=== PATIENT | female | born 2000 ===

== ENCOUNTER 2024-07-20 07:24 | Inpatient (IN) ==
[2024-07-20] MEDS ORDERED: OXYTOCIN 30 UNITS/NSS 30 UNITS/500 ML BAG IV PRN ×2 (07:54→21:59)
[2024-07-20] MEDS ORDERED: LIDOCAINE 1% LOCAL 20 ML VIAL INFIL PRN (07:54)
--- NOTE | 2024-07-20 07:59 | History & Physical Report ---
Date of Service July 20, 2024 Assessment & Plan (1) : Plan: G1, P0 labs reviewed nothing seems uneventful her group B strep is negative Chlamydia gonorrhea is negative had a negative maternal serum protein panorama suggests a female low risk had a negative carrier screen had an anatomy scan April 06 had the RSV vaccine and negative RPR on June 23 patient is uncomfortable previously been 1 cm now was 2.5 cm will admit History of Present Illness Primary Care Provider: NO PCP Unassigned patient not known to our practice she did have a apparently a visit scheduled for later today but has arrived in labor she has been checked by nursing at 2.5 cm uncomplicated is brought her records which are available she was receiving care in [place] but wishes to deliver in [place] because of family Physical Exam Constitutional: WD/WN, vitals as above well developed and well nourished Respiratory: normal respiratory effort, lungs clear to auscultation normal respiratory effort Cardiovascular: RRR, no murmur, no edema Gastrointestinal (Abdomen): normal bowel sounds, soft, nontender, no hepatosplenomegaly Results & Data Vital Signs (Past 12 Hours) Vital Signs Temp Pulse Resp BP 07/20/24 07:39 97.9 F 81 20 124/59 L Coding Level of Care Code None Diagnoses Z34.90
[2024-07-20 08:41] LABS: Hematocrit (blood only) 34.3 % (37.0-47.0); Hemoglobin 11.5 g/dl (12.0-16.0); Mean Corpuscular Hgb Conc 33.5 g/dL (32.0-36.0); Mean Corpuscular Volume 89.6 fL (80.0-100.0); Mean Platelet Volume 12.9 fL (9.4-12.4); Platelet Count 159 K/uL (130-400); RDW Coefficient of Variation 14.7 % (11.5-14.5); RDW Standard Deviation 48.2 fL (36.4-46.3); Red Blood Count 3.83 M/uL (4.20-5.40); White Blood Count 11.23 K/ul (4.8-10.8)
--- NOTE | 2024-07-20 10:26 | History & Physical Report ---
Date of Service July 20, 2024 History of Present Illness Chief Complaint: labor Primary Care Provider: NO PCP 24yo at 39wks ega presents to LD unassigned Allergies Allergy/AdvReac Type Severity Reaction Status Date / Time No Known Allergies Allergy Unverified 07/20/24 08:04 Home Medications Medication Instructions Recorded Confirmed Type vits no.124-ferrous fum 1 tab PO DAILY 07/20/24 07/20/24 History 27 mg iron-folic acid 800 mcg tablet ( Vitamin) Patient History Medical History UTI (urinary tract infection) Surgical History (Updated 07/20/24 @ 08:02 by Marika Brenner RN) No history of previous surgery Family History (Updated 07/20/24 @ 08:04 by Marika Brenner RN) Father Diabetes Hypertension Mother Hypertension Social History Smoking Status: Never smoker Hx Alcohol Use: No Hx Substance Use: No Preferred Language: Faroese Communication Ability: Effective Bridge Instructor Required: No Beliefs That Will Affect Care: None marital status: Current Living Situation: Spouse Current Living Situation Comment: Pt. 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 Feels Safe at Home: Yes Assistive Devices: Glasses Results & Data Vital Signs (Past 12 Hours) Vital Signs Temp Pulse Resp BP 07/20/24 10:03 76 110/62 07/20/24 10:02 97.5 F L 20 07/20/24 07:39 97.9 F 81 20 124/59 L Coding
--- NOTE | 2024-07-20 10:31 | Labor Progress Brief Note ---
Date of Service July 20, 2024 Subjective pt did ambulate and having stronger ctx. she denies rom or vb. Assessment & Plan (1) Normal labor: Plan pt has been admitted in labor. informed consent to proceed with arom, will see how that helps labor pattern. pt does want to ambulate intermittently. fhts categ 1. Physical Exam Constitutional: WD/WN, vitals as above Respiratory: normal respiratory effort, lungs clear to auscultation Cardiovascular: Rate/Rhythm: regular rate and regular rhythm Gastrointestinal (Abdomen): soft gravid nt efw 7-8# Musculoskeletal: no edema nontender calves Neurologic: grossly normal Psychiatric: A+Ox3, euthymic affect Genitourinary: Manual OB Exam: + cervical dilation (4-5cm), + cervical effacement 50%, + station -2 and + amniotic fluid (arom ) clear OB Exam Monitor Tracing: + external FHT monitor used, + external uterine monitor used (q2-4), + category I and + normal FHT variability Results & Data Vital Signs (Past 12 Hours) Vital Signs Temp Pulse Resp BP 07/20/24 10:03 76 110/62 07/20/24 10:02 97.5 F L 20 07/20/24 07:39 97.9 F 81 20 124/59 L Coding Level of Care Code None Diagnoses Normal labor O80; Z37.9
--- NOTE | 2024-07-20 12:11 | Labor Progress Brief Note ---
Date of Service July 20, 2024 Subjective feeling pain with ctx but declines pain mgmt Assessment & Plan (1) Normal labor: Plan given irregular ctx with no cx change in dilation, rec pit aug. pt agreeable. declines any pain mgmt. fhts categ 1. Physical Exam Constitutional: WD/WN, vitals as above Genitourinary: Manual OB Exam: + cervical dilation (no change), + cervical effacement 80% and + station -2 OB Exam Monitor Tracing: + external FHT monitor used, + external uterine monitor used (q3-5), + category I and + normal FHT variability Results & Data Vital Signs (Past 12 Hours) Vital Signs Temp Pulse Resp BP 07/20/24 11:43 86 112/60 07/20/24 11:30 97.5 F L 20 07/20/24 10:03 76 110/62 07/20/24 10:02 97.5 F L 20 07/20/24 07:39 97.9 F 81 20 124/59 L Coding Level of Care Code None Diagnoses Normal labor O80; Z37.9
[2024-07-20] MEDS: LACTATED RINGER'S 1,000 ML IV PRN (12:20)
[2024-07-20] MEDS: OXYTOCIN 30 UNITS/NSS 30 UNITS/500 ML BAG IV PRN (12:23)
--- NOTE | 2024-07-20 14:12 | Labor Progress Brief Note ---
Date of Service July 20, 2024 Subjective having pain with ctx. Assessment & Plan (1) Normal labor: Plan good cx change. fhts categ 1. c/w pitocin. cont to decline pain mgmt. Physical Exam Constitutional: WD/WN, vitals as above Genitourinary: Manual OB Exam: + cervical dilation 7 cm, + cervical effacement 100% and + station 0 OB Exam Monitor Tracing: + external FHT monitor used, + external uterine monitor used (q2-4 pit at 7), + category I and + normal FHT variability Results & Data Vital Signs (Past 12 Hours) Vital Signs Temp Pulse Resp BP 07/20/24 13:48 98.1 F 20 07/20/24 13:32 78 105/63 07/20/24 13:17 79 114/56 L 07/20/24 13:01 78 20 125/67 07/20/24 12:46 77 122/58 L 07/20/24 12:36 98.2 F 16 07/20/24 12:32 76 112/53 L 07/20/24 11:43 86 112/60 07/20/24 11:30 97.5 F L 20 07/20/24 10:03 76 110/62 07/20/24 10:02 97.5 F L 20 07/20/24 07:39 97.9 F 81 20 124/59 L Coding Level of Care Code None Diagnoses Normal labor O80; Z37.9
--- NOTE | 2024-07-20 15:39 | Labor Progress Brief Note ---
Date of Service July 20, 2024 Subjective pt cont to scream with pain with ctx Assessment & Plan (1) Normal labor: Plan some progress. c/w pit. fhts categ1. pt now agrees to epidural. anesth called. Physical Exam Constitutional: WD/WN, vitals as above Genitourinary: Manual OB Exam: + cervical dilation 8 cm, + cervical effacement 90% and + station 0 OB Exam Monitor Tracing: + external FHT monitor used, + external uterine monitor used (q2-4 pit at 9), + category I and + normal FHT variability of note some of tracing not of fetus due to pt sitting upright. Results & Data Vital Signs (Past 12 Hours) Vital Signs Temp Pulse Resp BP 07/20/24 15:16 94 H 123/71 07/20/24 14:45 93 H 119/67 07/20/24 14:16 83 127/77 07/20/24 13:48 98.1 F 20 07/20/24 13:32 78 105/63 07/20/24 13:17 79 114/56 L 07/20/24 13:01 78 20 125/67 07/20/24 12:46 77 122/58 L 07/20/24 12:36 98.2 F 16 07/20/24 12:32 76 112/53 L 07/20/24 11:43 86 112/60 07/20/24 11:30 97.5 F L 20 07/20/24 10:03 76 110/62 07/20/24 10:02 97.5 F L 20 07/20/24 07:39 97.9 F 81 20 124/59 L Coding Level of Care Code None Diagnoses Normal labor O80; Z37.9
[2024-07-20] MEDS: LIDOCAINE 2%/EPINEPHRINE 1:200,000 20 ML PF ONE (15:55)
[2024-07-20] MEDS: BUPIVACAINE 0.25% PF 30 ML VIAL ONE (15:55)
[2024-07-20] MEDS: fentANYL 2 MCG/ML BUPIVacaine 0.125%-NSS 100ML BAG ONE (16:04)
[2024-07-20] MEDS: SODIUM CHLORIDE 0.9% PF INJ 10 ML VIAL ONE (16:08)
[2024-07-20] MEDS: fentaNYL citrate PF 100 MCG/2 ML VIAL ONE (16:09)
--- NOTE | 2024-07-20 16:15 | Anesthesiology Consultation ---
Date of Service July 20, 2024 Assessment & Plan Chart Review Chart Review: Acceptable Risk for Labor Epidural Consults Requested none History Height/Weight Height: 5 ft Weight: 73.482 kg Allergies Allergy/AdvReac Type Severity Reaction Status Date / Time No Known Allergies Allergy Unverified 07/20/24 08:04 Medications Home Medications Medication Instructions Recorded Confirmed Last Taken vits no.124-ferrous fum 1 tab PO DAILY 07/20/24 07/20/24 07/18/24 08:00 27 mg iron-folic acid 800 mcg tablet ( Vitamin) Active Medications Generic Name Dose Route Start Last Admin Trade Name Freq PRN Reason Stop Dose Admin Lactated Ringer's 1,000 mls @ 125 mls/hr 07/20/24 07:54 07/20/24 15:34 Lr IV 07/21/24 07:53 999 mls/hr .Q8H PRN Infusion L&D Protocol Protocol Oxytocin 30 units in 500 mls @ 9 mls/hr 07/20/24 12:08 07/20/24 14:57 Pitocin 30 Units/Nss IV 07/22/24 12:07 0.54 units/hr .Q24H PRN 9 mls/hr Labor Induction/Augmentation Titration Protocol 0.54 UNITS/HR Past Medical History Medical History (Updated 07/20/24 @ 10:28 by Corie Pena MD, FACOG) UTI (urinary tract infection) Past Family History Family History (Updated 07/20/24 @ 08:04 by Marika Brenner RN) Father Diabetes Hypertension Mother Hypertension Past Surgical History Surgical History (Updated 07/20/24 @ 08:02 by Marika Brenner RN) No history of previous surgery Social History Smoking Status: Never smoker Hx Alcohol Use: No Hx Substance Use: No substance use type: does not use Physical Exam Vital Signs Last Vital Signs Temp 36.7 C 07/20/24 13:48 Pulse 83 07/20/24 16:12 Resp 20 07/20/24 13:48 BP 107/55 L 07/20/24 16:12 Pulse Ox 100 07/20/24 16:10 Testing Laboratory Results 07/20/24 08:12
[2024-07-20] MEDS ORDERED: diphenhydrAMINE 50 MG/ML VIAL IV PRN (16:16)
[2024-07-20] MEDS ORDERED: ROPIVACAINE 0.5% PF 5 MG/ML 20 ML VIAL EPI PRN (16:16)
[2024-07-20] MEDS ORDERED: BUPIVACAINE 0.25% PF 30 ML VIAL EPI PRN (16:16)
[2024-07-20] MEDS ORDERED: NALOXONE HCL 0.4 MG/1 ML VIAL/CARP IV PRN (16:16)
[2024-07-20] MEDS ORDERED: fentaNYL citrate PF 100 MCG/2 ML VIAL EPI PRN (16:16)
[2024-07-20] MEDS ORDERED: SODIUM CHLORIDE 0.9% PF INJ 10 ML VIAL EPI STA (16:16)
[2024-07-20] MEDS ORDERED: BUPIVACAINE 0.25% PF 30 ML VIAL EPI STA (16:16)
[2024-07-20] MEDS ORDERED: LIDOCAINE 2% MPF LOCAL 5 ML VIAL EPI PRN (16:16)
[2024-07-20] MEDS ORDERED: LIDOCAINE 2%/EPINEPHRINE 1:200,000 20 ML PF EPI STA (16:16)
[2024-07-20] MEDS ORDERED: SODIUM CHLORIDE 0.9% PF INJ 10 ML VIAL EPI PRN (16:16)
[2024-07-20] MEDS ORDERED: ePHEDrine sulfate 50 MG/ML AMP IV PRN (16:16)
[2024-07-20] MEDS ORDERED: NALOXONE HCL 1 MG in SODIUM CHLORIDE 0.9% 1,000 ML IV PRN (16:16)
[2024-07-20] MEDS ORDERED: NALBUPHINE HCL INJ 10 MG/ML AMP IV PRN (16:16)
[2024-07-20] MEDS ORDERED: fentANYL 2 MCG/ML BUPIVacaine 0.125%-NSS 100ML BAG EPI PRN (16:16)
[2024-07-20] MEDS ORDERED: fentaNYL citrate PF 100 MCG/2 ML VIAL EPI STA (16:16)
--- NOTE | 2024-07-20 17:42 | Labor Progress Brief Note ---
Date of Service July 20, 2024 Subjective pt now feeling more pain with ctx, did get to sleep some with epidural. Assessment & Plan (1) Normal labor: Plan fhts categ 1, begin 2nd stage. Physical Exam Constitutional: WD/WN, vitals as above Genitourinary: Manual OB Exam: + cervical dilation 10 cm, + cervical effacement 100% and + station + 2 OB Exam Monitor Tracing: + external FHT monitor used, + external uterine monitor used, + category I and + normal FHT variability Results & Data Vital Signs (Past 12 Hours) Vital Signs Temp Pulse Resp BP Pulse Ox 07/20/24 17:35 99 H 98 07/20/24 17:34 102 H 123/68 07/20/24 17:30 94 H 99 07/20/24 17:25 87 98 07/20/24 17:20 98 07/20/24 17:20 85 07/20/24 17:20 82 109/60 07/20/24 17:15 82 98 07/20/24 17:10 81 98 07/20/24 17:05 91 H 99 07/20/24 17:04 83 107/56 L 07/20/24 17:00 82 99 07/20/24 16:55 89 99 07/20/24 16:50 81 99 07/20/24 16:48 85 108/57 L 07/20/24 16:45 75 100 07/20/24 16:40 80 100 07/20/24 16:35 80 106/57 L 100 07/20/24 16:30 81 100 07/20/24 16:25 81 100 07/20/24 16:20 84 100 07/20/24 16:18 98.8 F 16 07/20/24 16:18 91 H 101/58 L 07/20/24 16:16 86 106/57 L 07/20/24 16:15 89 100 07/20/24 16:14 88 102/59 L 07/20/24 16:12 83 107/55 L 07/20/24 16:10 100 07/20/24 16:10 94 H 07/20/24 16:10 90 105/59 L 07/20/24 16:08 83 109/56 L 07/20/24 16:06 83 114/56 L 07/20/24 16:05 96 H 100 07/20/24 16:04 85 114/57 L 07/20/24 16:02 92 H 117/56 L 07/20/24 16:00 104 H 108/53 L 100 07/20/24 15:58 102 H 117/64 07/20/24 15:55 107 H 100 07/20/24 15:47 122 H 134/64 07/20/24 15:16 94 H 123/71 07/20/24 14:45 93 H 119/67 07/20/24 14:16 83 127/77 07/20/24 13:48 98.1 F 20 07/20/24 13:32 78 105/63 07/20/24 13:17 79 114/56 L 07/20/24 13:01 78 20 125/67 07/20/24 12:46 77 122/58 L 07/20/24 12:36 98.2 F 16 07/20/24 12:32 76 112/53 L 07/20/24 11:43 86 112/60 07/20/24 11:30 97.5 F L 20 07/20/24 10:03 76 110/62 07/20/24 10:02 97.5 F L 20 07/20/24 07:39 97.9 F 81 20 124/59 L Coding Level of Care Code None Diagnoses Normal labor O80; Z37.9
[2024-07-20] MEDS: ePHEDrine sulfate 50 MG/ML AMP ONE (17:47)
--- NOTE | 2024-07-20 21:31 | Delivery Summary ---
Vaginal Delivery Summary Date of Service July 20, 2024 Vaginal Delivery Summary and 3rd Degree LAC (partial) The patient dilated to complete and pushed to deliver a viable female infant Apgars 8 and 9 via over partial 3rd degree perineal laceration from OP position. Mouth and nose bulb suctioned at perineum. Shoulders and body delivered with ease. Infant was vigorous and crying at . Cord clamped at 30 seconds of life and to maternal abdomen where the cord was then doubly clamped and cut. Placenta delivered spontaneously and intact, three-vessel cord. Hemostasis achieved with dilute pitocin and uterine massage and drainage of the bladder for approximately 100 cc under sterile conditions. Laceration repaired in layers with 3-0 vicryl in usual fashion. Cervix and sulci intact. QBL 192 cc. Mother and baby stable in recovery. [facility] Vaginal Delivery Charge Delivery Type Details: and 3rd Degree LAC (partial)
[2024-07-20] MEDS ORDERED: oxyCODONE/ACETAMINOPHEN 5mg/325mg TAB PO PRN (21:59)
[2024-07-20] MEDS ORDERED: HYDROCORTISONE ACETATE 25 MG SUPP PR PRN (21:59)
[2024-07-20] MEDS: IBUPROFEN 600 MG TAB PO PRN (22:11)
[2024-07-20] MEDS: DIPHTHER/TETAN/PERTUS Vaccine (Tdap, Adol/Adult) 0.5mL IM ONE (22:12)
[2024-07-20] MEDS: BENZOCAINE 20% SPRY 85 APPLN/85 GM CAN EXT PRN (22:12)
--- NOTE | 2024-07-20 22:22 | Anesthesia Procedure Note ---
Date of Service July 20, 2024 Anesthesia Post Epidural Note Vital Signs Vital Signs: Temp Pulse Resp BP Pulse Ox 36.5 C 118 H 18 123/62 85 L 07/20/24 19:15 07/20/24 22:18 07/20/24 19:15 07/20/24 22:18 07/20/24 21:29 Pain Intensity Hip: Pain Intensity: 6 Notes Mental Status: alert / awake / arousable Nausea / Vomiting: adequately controlled Pain: adequately controlled Airway Patency, RR, SpO2: stable & adequate BP & HR: stable & adequate Hydration State: stable & adequate Neuraxial Anesthesia: was administered and sensory block is resolving Anesthetic Complications: no major complications apparent and Pt Satisfied with anesthetic care Epidural: Removed without complications and With tip intact
--- NOTE | 2024-07-21 06:50 | Obstetrical Progress Note ---
Date of Service July 21, 2024 Assessment & Plan (1) state: (2) Perineal laceration during delivery: Plan So is a 24yo day 1 s/p with 3rd degree perineal laceration. Feels well today but tired, BP slightly low and HR around 100 Continue care Encourage food intake, ambulation and Pain control with ibuprofen as needed Hgb: 11.5 on 07/20 Considering home tomorrow 07/22/[address] Pena in 6wks Admission and Anticipated Discharge Date Admission Date: July 20, 2024 Supervising Physician Co-Signing Physician Notes Resident Physician Supervision Note: I was present with Dr. Lake during the history and exam. I discussed the case with the resident and agree with the findings and plan as documented in the note. Any exceptions or clarifications are listed here: stable doing well, very sleepy. breast feeding. some cramping and aware of pain meds. abd soft ff 1down appropriately tender. nt calves. ppd#1 s/p routine care. rh pos, ri. Documented By: Corie Pena MD, FACOG Subjective So is a 24yo day 1 s/p with 3rd degree perineal laceration, appearing tired Feeling: good, tired Ambulation: yes Void: yes Lochia: decreasing Diet: tolerating Feeding: breast, no concerns Sx: denies Physical Exam Physical Exam: Constitutional: WD/WN, vitals as above GI/abd: +BS, abdomen still distended but soft, unable to palpate discrete uterine fundus LE: no swelling, nontender to palpation, wiggles toes Psychiatric: A&Ox3, tired appearing Results & Data Vital Signs (Past 12 Hours) Vital Signs Temp Pulse Pulse Resp BP BP Pulse Ox 07/21/24 03:35 36.5 C 100 H 20 96/54 L 98 07/21/24 00:05 37.2 C 88 18 118/71 97 07/20/24 23:33 99 H 115/60 07/20/24 23:30 36.8 C 18 07/20/24 23:18 97 H 115/60 07/20/24 23:03 116 H 116/58 L 07/20/24 23:00 36.8 C 18 07/20/24 22:48 122 H 110/57 L 07/20/24 22:33 111 H 124/58 L 07/20/24 22:30 36.8 C 18 07/20/24 22:18 118 H 123/62 07/20/24 22:15 36.8 C 18 07/20/24 22:03 113 H 133/71 07/20/24 22:00 36.8 C 18 07/20/24 21:48 106 H 121/64 07/20/24 21:45 36.8 C 18 07/20/24 21:33 112 H 116/67 07/20/24 21:30 36.8 C 18 07/20/24 21:29 113 H 85 L 07/20/24 21:28 111 H 95 07/20/24 21:23 111 H 97 07/20/24 21:18 111 H 110/62 69 L 07/20/24 21:15 119 H 85 L 07/20/24 21:13 115 H 98 07/20/24 21:09 102 H 78 L 07/20/24 21:08 108 H 94 07/20/24 21:03 116 H 125/58 L 07/20/24 21:02 125 H 85 L 07/20/24 20:58 110 H 86 L 07/20/24 20:57 109 H 92 07/20/24 20:53 127 H 78 L 07/20/24 20:51 112 H 91 07/20/24 20:49 110 H 128/58 L 07/20/24 20:46 128 H 98 07/20/24 20:45 127 H 85 L 07/20/24 20:41 118 H 95 07/20/24 20:39 115 H 85 L 07/20/24 20:36 117 H 95 07/20/24 20:34 126 H 136/74 83 L 07/20/24 20:31 126 H 64 L 07/20/24 20:27 102 H 67 L 07/20/24 20:26 113 H 94 07/20/24 20:21 124 H 85 L 07/20/24 20:20 126 H 81 L 07/20/24 20:19 134 H 138/63 07/20/24 20:16 132 H 97 07/20/24 20:12 122 H 73 L 07/20/24 20:10 106 H 95 07/20/24 20:06 146 H 84 L 07/20/24 20:05 110 H 129/66 99 07/20/24 20:00 115 H 92 07/20/24 19:53 114 H 82 L 07/20/24 19:51 117 H 133/59 L 07/20/24 19:49 123 H 117/58 L 07/20/24 19:48 125 H 70 L 07/20/24 19:43 117 H 98 07/20/24 19:38 119 H 100 07/20/24 19:35 115 H 124/59 L 07/20/24 19:33 119 H 90 07/20/24 19:32 116 H 100 07/20/24 19:26 96 H 100 07/20/24 19:21 101 H 98 07/20/24 19:19 100 H 119/59 L 07/20/24 19:16 100 07/20/24 19:16 93 H 07/20/24 19:16 101 H 89 L 07/20/24 19:15 36.5 C 18 07/20/24 19:15 18 07/20/24 19:15 36.5 C 18 07/20/24 19:11 89 100 07/20/24 19:06 99 H 100 07/20/24 19:04 101 H 114/70 07/20/24 19:03 111 H 92 07/20/24 19:01 107 H 100 07/20/24 18:56 98 H 96 07/20/24 18:54 99 H 126/64 07/20/24 18:52 112 H 93 07/20/24 18:51 107 H 100 O2 Del Method 07/21/24 03:35 Room Air 07/21/24 00:05 Room Air 07/20/24 23:33 07/20/24 23:30 07/20/24 23:18 07/20/24 23:03 07/20/24 23:00 07/20/24 22:48 07/20/24 22:33 07/20/24 22:30 07/20/24 22:18 07/20/24 22:15 07/20/24 22:03 07/20/24 22:00 07/20/24 21:48 07/20/24 21:45 07/20/24 21:33 07/20/24 21:30 07/20/24 21:29 07/20/24 21:28 07/20/24 21:23 07/20/24 21:18 07/20/24 21:15 07/20/24 21:13 07/20/24 21:09 07/20/24 21:08 07/20/24 21:03 07/20/24 21:02 07/20/24 20:58 07/20/24 20:57 07/20/24 20:53 07/20/24 20:51 07/20/24 20:49 07/20/24 20:46 07/20/24 20:45 07/20/24 20:41 07/20/24 20:39 07/20/24 20:36 07/20/24 20:34 07/20/24 20:31 07/20/24 20:27 07/20/24 20:26 07/20/24 20:21 07/20/24 20:20 07/20/24 20:19 07/20/24 20:16 07/20/24 20:12 07/20/24 20:10 07/20/24 20:06 07/20/24 20:05 07/20/24 20:00 07/20/24 19:53 07/20/24 19:51 07/20/24 19:49 07/20/24 19:48 07/20/24 19:43 07/20/24 19:38 07/20/24 19:35 07/20/24 19:33 07/20/24 19:32 07/20/24 19:26 07/20/24 19:21 07/20/24 19:19 07/20/24 19:16 07/20/24 19:16 07/20/24 19:16 07/20/24 19:15 07/20/24 19:15 07/20/24 19:15 07/20/24 19:11 07/20/24 19:06 07/20/24 19:04 07/20/24 19:03 07/20/24 19:01 07/20/24 18:56 07/20/24 18:54 07/20/24 18:52 07/20/24 18:51 Resident Activity Tracking Resident Involvement: Resident Care Provided Care Provided: OB Delivery (2) Perineal laceration during delivery Perineal laceration degree: third degree Third degree perineal laceration subtype: unspecified Qualified Code(s): O70.20 - Third degree perineal laceration during delivery, unspecified
[2024-07-21] MEDS: ACETAMINOPHEN 325 MG TAB PO PRN (08:14)
[2024-07-21] MEDS: PRENATAL VITAMIN 1 TAB PO SCH (08:15)
[2024-07-21] MEDS: DOCUSATE SODIUM 100 MG CAP PO SCH (08:15)
[2024-07-21] MEDS: bisacodyL 5 MG TABEC PO SCH (21:06)
--- NOTE | 2024-07-22 06:32 | Obstetrical Progress Note ---
Date of Service July 22, 2024 Assessment & Plan (1) state: (2) Perineal laceration during delivery: Plan So is a 24yo day 2 s/p with 3rd degree perineal laceration. Feels well today, VSS Continue care Encourage food intake, ambulation and Pain control with ibuprofen as needed Hgb: 11.5 on 07/20 Home today Follow up with Dr. Pena in 6wks Admission and Anticipated Discharge Date Admission Date: July 20, 2024 Supervising Physician Co-Signing Physician Notes Resident Physician Supervision Note: I was present with Dr. Lake during the history and exam. I discussed the case with the resident and agree with the findings and plan as documented in the note. Any exceptions or clarifications are listed here: [None] Documented By: Etelvina Witt MD, FACOG Subjective So is a 24yo day 2 s/p with 3rd degree perineal laceration Feeling: good, some abdominal cramping, a bit tired Ambulation: yes Void: yes Lochia: decreasing Diet: tolerating Feeding: breast, no concerns Sx: denies Physical Exam Physical Exam: Constitutional: WD/WN, vitals as above GI/abd: +BS, fundus firm 2fw- umbilicus LE: no swelling, nontender to palpation, wiggles toes Psychiatric: A&Ox3, tired appearing Results & Data Vital Signs (Past 12 Hours) Vital Signs Temp Pulse Resp BP Pulse Ox O2 Del Method 07/22/24 00:30 36.5 C 88 18 123/79 97 Room Air 07/21/24 20:45 37.2 C 98 H 18 112/73 99 Room Air Resident Activity Tracking Resident Involvement: Resident Care Provided Care Provided: OB Delivery (2) Perineal laceration during delivery Perineal laceration degree: third degree Third degree perineal laceration subtype: unspecified Qualified Code(s): O70.20 - Third degree perineal laceration during delivery, unspecified
[2024-07-22] MEDS: INFLUENZA VACC TS2024-25(6m+)/PF (IIV3) 0.5mL Syr IM ONE (12:57)
== END 2024-07-22 13:30 | disposition home or self-care (01) | DRG 768 ==
LOC: OPB 07:24 → 4S1 07:27 → 4E2 07-21 00:55